=== PATIENT | female | born 1990 | race Caucasian/White ===

== ENCOUNTER 2020-05-26 20:30 | Emergency (ER) | payer BC ==
[2020-05-26] MEDS ORDERED: Sodium Chloride 0.9% 1,000 ML IV SCH (21:15)
--- NOTE | 2020-05-27 00:29 | EDM.PDOC ---
ED HPI GENERAL MEDICAL PROBLEM - General Chief Complaint: General Stated Complaint: [facility] Time Seen by Provider: 05/26/20 20:53 Source of Information: Reports: Patient, EMS History Limitations: Reports: No Limitations - History of Present Illness INITIAL COMMENTS - FREE TEXT/NARRATIVE: The patient was at a local restaurant sitting on a barstool enjoying an alcohol ic beverage when she became lightheaded and fell off the stool. It is not clear if she had a full syncopal episode or if this was lightheadedness and near syncope. She thinks she did hit her head in the process. There is some tenderness of her neck. She is also complaining of lumbar pain. There are no salient risk factors other than cigarette smoking. Patient was transported by EMS under the circumstances. There was no treatment other than supportive care in route. Patient has not had fever chest pain any other symptom of acute medical illness. No dysuria no cough. Patient notes that she is an occasional drinker and thinks that she was lightheaded from her alcoholic beverage though she thinks she was not actually intoxicated to any extent. Head Pain Score (Numeric/FACES): 8 Neck Pain Score (Numeric/FACES): 8 - Related Data Allergies Allergy/AdvReac Type Severity Reaction Status Date / Time No Known Allergies Allergy Verified 05/26/20 20:37 Home Meds: Home Meds FLUoxetine [PROzac] 30 mg PO BEDTIME 05/26/20 [History] Past Medical History Psychiatric History: Reports: Anxiety, Depression - Infectious Disease History Infectious Disease History: Reports: Chicken Pox - Past Surgical History GI Surgical History: Reports: Appendectomy Female Surgical History: Reports: Tubal Ligation Social & Family History - Tobacco Use Tobacco Use Status *Q: Current Every Day Tobacco User Years of Tobacco use: 13 Packs/Tins Daily: 0.5 - Caffeine Use Caffeine Use: Reports: Coffee - Recreational Drug Use Recreational Drug Use: No ED ROS GENERAL - Review of Systems Review Of Systems: Comprehensive ROS is negative, except as noted in HPI. ED EXAM, GENERAL - Physical Exam Exam: See Below Free Text/Narrative:: Patient is alert and in no distress. Head normocephalic atraumatic despite the history given. EOMI PERRLA. ENT grossly normal. RLA EOMI. Initially in cervical collar. After normal CT of C-spine the collar was removed and neck noted to be supple and normal on inspection. Lungs are clear. Abdomen is soft and nontender. No guarding or rebound. There is no peripheral edema cyanosis or clubbing of the digits. Neurologically the patient is grossly intact with fluent speech and no deficit of motor or sensory function. Skin is warm and dry with normal turgor. There is mild pain produced in the lumbar spine on twisting of the torso. Negative straight leg raise. No weakness. #1 Interpretation EKG Date: 05/26/20 Time: 22:15 Rate (Beats/Min): 78 [place]: Normal P-Wave: Present QRS: Normal ST-T: Normal QT: Normal EKG Interpretation Comments: No acute ischemic change Course - Vital Signs Text/Narrative:: There are no salient abnormals and imaging or in labs except for a potassium of 3.0. She is getting a 40 mEq dose prior to departure. She was asked if she needed anything for pain and she says she was just fine without it. The instructions below. Last Recorded V/S: Last Vital Signs Temp 36.2 C 05/26/20 20:34 Pulse 79 05/26/20 20:34 Resp 18 05/26/20 20:34 BP 120/72 05/26/20 20:34 Pulse Ox 95 05/26/20 20:34 - Orders/Labs/Meds Orders: Active Orders 24 hr Category Date Time Status EKG Documentation Completion [RC] STAT Care 05/26/20 21:09 Active Cervical Spine wo Cont [CT] Stat Exams 05/26/20 22:53 Taken Chest 1V Frontal [CR] Stat Exams 05/26/20 22:51 Taken Head wo Cont [CT] Stat Exams 05/26/20 22:53 Taken Lumbar Spine wo Cont [CT] Stat Exams 05/26/20 22:52 Taken Sodium Chloride 0.9% [Normal Saline] 1,000 ml Med 05/26/20 21:15 Active IV ASDIRECTED Medication Orders Sodium Chloride (Normal Saline) 1,000 mls @ 150 mls/hr IV ASDIRECTED RUSS Last Admin: 05/26/20 21:26 Dose: 150 mls/hr Documented by: MARILY Labs: Laboratory Tests 05/26/20 05/26/20 05/26/20 Range/Units 21:25 21:25 21:25 WBC 7.44 (3.98-10.04) K/mm3 RBC 4.55 (3.98-5.22) M/mm3 Hgb 13.9 (11.2-15.7) gm/dl Hct 41.3 (34.1-44.9) % MCV 90.8 (79.4-94.8) fl MCH 30.5 (25.6-32.2) pg MCHC 33.7 (32.2-35.5) g/dl RDW Std Deviation 39.5 (36.4-46.3) fL Plt Count 338 (182-369) K/mm3 MPV 8.9 L (9.4-12.3) fl Neutrophils % (Manual) 53 (40-60) % Band Neutrophils % 0 (0-10) % Lymphocytes % (Manual) 42 H (20-40) % Atypical Lymphs % 2 % Monocytes % (Manual) 3 (2-10) % Eosinophils % (Manual) 0 L (0.7-5.8) % Basophils % (Manual) 0 L (0.1-1.2) Toxic Granulation Few Platelet Estimate Adequate RBC Morph Comment Normal D-Dimer, Quantitative < 0.19 L (0.19-0.50) mg/L Sodium 139 (136-145) mEq/L Potassium 3.0 L (3.5-5.1) mEq/L Chloride 101 (98-107) mEq/L Carbon Dioxide 24 (21-32) mEq/L Anion Gap 17.0 H (5-15) BUN 12 (7-18) mg/dL Creatinine 0.9 (0.55-1.02) mg/dL Est Cr Clr Drug Dosing 69.60 mL/min Estimated GFR (MDRD) > 60 (>60) mL/min BUN/Creatinine Ratio 13.3 L (14-18) Glucose 128 H (74-106) mg/dL Calcium 9.1 (8.5-10.1) mg/dL Magnesium 2.0 (1.8-2.4) mg/dl Total Bilirubin 0.3 (0.2-1.0) mg/dL AST 19 (15-37) U/L ALT 34 (14-59) U/L Alkaline Phosphatase 94 (46-116) U/L Creatine Kinase 98 (26-192) U/L Troponin I < 0.017 (0.00-0.056) ng/mL Total Protein 7.5 (6.4-8.2) g/dl Albumin 4.2 (3.4-5.0) g/dl Globulin 3.3 gm/dL Albumin/Globulin Ratio 1.3 (1-2) TSH 3rd Generation 3.139 (0.358-3.74) uIU/mL HCG, Qual (NEGATIVE) Urine Color (Yellow) Urine Appearance (Clear) Urine pH (5.0-8.0) Ur Specific [place] (1.005-1.030) Urine Protein (Negative) Urine Glucose (UA) (Negative) Urine Ketones (Negative) Urine Occult Blood (Negative) Urine Nitrite (Negative) Urine Bilirubin (Negative) Urine Urobilinogen (0.2-1.0) Ur Leukocyte Esterase (Negative) Urine Opiates Screen (AUTVNG=014) Ur Buprenorphine Scrn (CUTOFF=10) Ur Oxycodone Screen (EDT9ZV=785) Urine Methadone Screen (KVAUHQ=160) Ur Propoxyphene Screen (ZQGKZS=446) Ur Barbiturates Screen (GGQSQK=969) Ur Tricyclics Screen (SJQDBI=073) Ur Phencyclidine Scrn (CUTOFF=25) Ur Amphetamine Screen (TFVVLZ=120) U Methamphetamines Scrn (LHVHMX=818) U Benzodiazepines Scrn (OLSQLN=174) U Cocaine Metab Screen (FRCNXS=262) U Marijuana (THC) Screen (CUTOFF=50) Ethyl Alcohol 0.05 (0.00) gm% 05/26/20 05/26/20 05/26/20 Range/Units 21:25 22:31 22:31 WBC (3.98-10.04) K/mm3 RBC (3.98-5.22) M/mm3 Hgb (11.2-15.7) gm/dl Hct (34.1-44.9) % MCV (79.4-94.8) fl MCH (25.6-32.2) pg MCHC (32.2-35.5) g/dl RDW Std Deviation (36.4-46.3) fL Plt Count (182-369) K/mm3 MPV (9.4-12.3) fl Neutrophils % (Manual) (40-60) % Band Neutrophils % (0-10) % Lymphocytes % (Manual) (20-40) % Atypical Lymphs % % Monocytes % (Manual) (2-10) % Eosinophils % (Manual) (0.7-5.8) % Basophils % (Manual) (0.1-1.2) Toxic Granulation Platelet Estimate RBC Morph Comment D-Dimer, Quantitative (0.19-0.50) mg/L Sodium (136-145) mEq/L Potassium (3.5-5.1) mEq/L Chloride (98-107) mEq/L Carbon Dioxide (21-32) mEq/L Anion Gap (5-15) BUN (7-18) mg/dL Creatinine (0.55-1.02) mg/dL Est Cr Clr Drug Dosing mL/min Estimated GFR (MDRD) (>60) mL/min BUN/Creatinine Ratio (14-18) Glucose (74-106) mg/dL Calcium (8.5-10.1) mg/dL Magnesium (1.8-2.4) mg/dl Total Bilirubin (0.2-1.0) mg/dL AST (15-37) U/L ALT (14-59) U/L Alkaline Phosphatase (46-116) U/L Creatine Kinase (26-192) U/L Troponin I (0.00-0.056) ng/mL Total Protein (6.4-8.2) g/dl Albumin (3.4-5.0) g/dl Globulin gm/dL Albumin/Globulin Ratio (1-2) TSH 3rd Generation (0.358-3.74) uIU/mL HCG, Qual Negative (NEGATIVE) Urine Color Yellow (Yellow) Urine Appearance Clear (Clear) Urine pH 6.0 (5.0-8.0) Ur Specific [place] 1.020 (1.005-1.030) Urine Protein Negative (Negative) Urine Glucose (UA) Negative (Negative) Urine Ketones Negative (Negative) Urine Occult Blood Negative (Negative) Urine Nitrite Negative (Negative) Urine Bilirubin Negative (Negative) Urine Urobilinogen 0.2 (0.2-1.0) Ur Leukocyte Esterase Negative (Negative) Urine Opiates Screen Negative (JFMDHJ=751) Ur Buprenorphine Scrn Negative (CUTOFF=10) Ur Oxycodone Screen Negative (GYX2IZ=563) Urine Methadone Screen Negative (YQDAEJ=158) Ur Propoxyphene Screen Negative (AGCEHR=443) Ur Barbiturates Screen Negative (PASQHH=352) Ur Tricyclics Screen Negative (RQUNNF=596) Ur Phencyclidine Scrn Negative (CUTOFF=25) Ur Amphetamine Screen Negative (JAQBCL=539) U Methamphetamines Scrn Negative (DJWRWQ=942) U Benzodiazepines Scrn Negative (HARYDU=302) U Cocaine Metab Screen Negative (WTLTEA=201) U Marijuana (THC) Screen Negative (CUTOFF=50) Ethyl Alcohol (0.00) gm% Meds: Medications Generic Name Dose Route Start Last Admin Trade Name Freq PRN Reason Stop Dose Admin Sodium Chloride 1,000 mls @ 150 mls/hr 05/26/20 21:15 05/26/20 21:26 Normal Saline IV 150 mls/hr ASDIRECTED RUSS Administration Discontinued Medications Generic Name Dose Route Start Last Admin Trade Name Freq PRN Reason Stop Dose Admin Potassium Chloride 40 meq 05/27/20 00:52 Potassium Chloride 20 Meq Tab.Er PO 05/27/20 00:53 ONETIME ONE Departure - Departure Time of Disposition: 01:00 Disposition: Home, Self-Care 01 Condition: Good Clinical Impression: Near syncope, Hypokalemia, Fall involving stool as cause of accidental injury Low back pain Qualifiers: Chronicity: acute Back pain laterality: midline Sciatica presence: without sciatica Qualified Code(s): M54.5 - Low back pain - Discharge Information Referrals: Angela Verdin [facility] [Primary Care Provider] - Forms: ED Department Discharge Additional Instructions: Been seen after a fall and you have low back pain. All of your other imaging was completely negative as well as the lumbar spine CT scan. If this does not resolve spontaneously you will probably need an MRI. Please report this visit to your primary physician and have follow-up at the direction of your primary. You are also noted to have a mild hypokalemia, your potassium level was 3.0. Report this to your primary physician also. You have received a 40 mEq oral dose of potassium in the ER prior to leaving. Sepsis Event Note (ED) - Evaluation Sepsis Screening Result: No Definite Risk - Focused Exam Vital Signs: Vital Signs Temp Pulse Resp BP Pulse Ox 05/26/20 20:34 36.2 C 79 18 120/72 95 - My Orders Last 24 Hours: My Active Orders 05/26/20 21:09 EKG Documentation Completion [RC] STAT 05/26/20 21:15 Sodium Chloride 0.9% [Normal Saline] 1,000 ml IV ASDIRECTED 05/26/20 22:51 Chest 1V Frontal [CR] Stat 05/26/20 22:52 Lumbar Spine wo Cont [CT] Stat 05/26/20 22:53 Cervical Spine wo Cont [CT] Stat Head wo Cont [CT] Stat - Assessment/Plan Last 24 Hours: My Active Orders 05/26/20 21:09 EKG Documentation Completion [RC] STAT 05/26/20 21:15 Sodium Chloride 0.9% [Normal Saline] 1,000 ml IV ASDIRECTED 05/26/20 22:51 Chest 1V Frontal [CR] Stat 05/26/20 22:52 Lumbar Spine wo Cont [CT] Stat 05/26/20 22:53 Cervical Spine wo Cont [CT] Stat Head wo Cont [CT] Stat
[2020-05-27] MEDS ORDERED: Potassium Chloride 20 MEQ Tab.ER PO ONE (00:52)
--- NOTE | 2020-05-27 08:08 | CR ---
Chest: Portable view of the chest was obtained. Comparison: No prior chest imaging is available. Heart size and mediastinum are normal. Lungs are clear with no acute parenchymal change. Bony structures are within normal limits for portable technique. Impression: 1. Nothing acute is seen on portable chest x-ray. Diagnostic code #1
--- NOTE | 2020-05-27 08:19 | CT ---
CT cervical spine Technique: Multiple axial sections were obtained from above C1 inferiorly to the bottom of T2. Reconstructed coronal and sagittal images were obtained. Comparison: No prior cervical spine imaging is available. Findings: Vertebral body heights and disc spaces are fairly well preserved. Very slight posterolateral spurring is noted at C4-5 on the right side and at C5-6 to the midline and to the left side. No other degenerative spurring is seen. No bony central or bony neural foraminal stenosis is seen. No acute fracture or subluxation is seen Impression: 1. Minimal degenerative change. 2. Nothing acute is seen on CT study of the cervical spine. Diagnostic code #2 I agree with preliminary report from [facility], finalized on 05/27/20, 1:18 AM CDT
--- NOTE | 2020-05-27 08:21 | CT ---
Head CT Technique: Multiple axial sections through the brain were obtained. Intravenous contrast was not utilized. Reconstructed coronal and sagittal images were obtained. Comparison: No prior intracranial imaging is available. Findings: Ventricles along with basal cisterns and sulci over convexities appear within normal limits for the patient's age. No abnormal parenchymal densities are seen. No evidence of intracranial hemorrhage. No midline shift or mass-effect is appreciated. Bone window settings were reviewed. There is a small amount of fluid within the sphenoid sinus. Minimal mucosal thickening is seen within the maxillary sinuses. Visualized mastoid sinuses are clear. No acute osseous finding is appreciated. Impression: 1. Small amount of fluid within the sphenoid sinus. Findings most likely represent retained secretions if patient has no symptoms of mild acute sinusitis. Minimal mucosal thickening is noted within the maxillary sinus. 2. No acute intracranial abnormality is appreciated. Diagnostic code #3 I agree with preliminary report from [facility], finalized on 05/27/20, 1:10 AM CDT
--- NOTE | 2020-05-27 08:23 | CT ---
CT lumbar spine Technique: Multiple axial sections were obtained from the posterior disc space at T11-12 inferiorly through the L5-S1 disc. Reconstructed coronal and sagittal images were obtained. Comparison: No prior lumbar spine imaging is available. Findings: Slight disc space narrowing is seen at L5-S1 which is believed to be developmental. Minimal posterior disc bulge at L4-5 is seen. Slightly abnormal sacroiliac joint on the left side is noted with mild secondary degenerative change. There is a partial transitional segment seen at L5-S1 with pseudoarticulation and enlarged transverse process to the sacrum. No acute fracture is seen. No bony central or bony neural foraminal stenosis is seen. No abnormal subluxation is appreciated. Impression: 1. Partial transitional segment at L5-S1 as described above. 2. Minimal posterior disc bulge at L4-5. 3. Nothing acute is appreciated on CT study of the lumbar spine. Diagnostic code #2 I agree with preliminary report from [facility], finalized on 05/27/20, 1:29 AM CDT
== END 2020-05-27 01:10 | disposition home or self-care (01) ==
LOC: JD.ED 20:30
DX: E87.6 Hypokalemia (principal); R55 Syncope and collapse; M54.5 Low back pain; F17.210 Nicotine dependence, cigarettes, uncomplicated; Z79.899 Other long term (current) drug therapy
CPT/HCPCS: 36415; 70450; 71045; 72125; 72131; 80053; 80306; 80307; 81003; 82550; 83735; 84443; 84484; 84703; 85007; 85027; 85379; 93005; 99285; A9270; J7030; 93010; 99284